=== PATIENT | male | born 2000 | race Two or more races ===

== ENCOUNTER 2019-05-12 23:12 | Emergency (ER) | payer SELFPAY ==
[2019-05-12 23:31] VITALS: BP 113/66
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
== END 2019-05-13 00:50 | disposition left against medical advice (07) ==
LOC: ER 23:12
DX: S06.9X9A Unspecified intracranial injury with loss of consciousness of unspecified duration, initial encounter (principal); Y04.2XXA Assault by strike against or bumped into by another person, initial encounter; Z53.20 Procedure and treatment not carried out because of patient's decision for unspecified reasons
CPT/HCPCS: 99281

== ENCOUNTER 2019-11-09 19:32 | Emergency (ER) | payer SELFPAY ==
[2019-11-09] MEDS ORDERED: DIPH/PERTUSS(ACELL)/TETANUS VAC/PF 0.5 ML SYR (>=10YO) IM ONE (19:53)
--- NOTE | 2019-11-09 19:55 | ER Document Report ---
ED Medical Screen (RME) - General Chief Complaint: Dog Bite Stated Complaint: DOG BITE LEFT KNEE AND ABDOMEN Time Seen by Provider: 11/09/19 19:50 Mode of Arrival: Ambulatory Information source: Patient Notes: This 19-year-old male presents emergency department with a dog bite to his left knee and to his abdomen. He reports he walked into his friend's house and the pitbull did not recognize him and bit him. Unsure of last tetanus. He reports the dog does have his rabies vaccines. I have greeted and performed a rapid initial assessment of this patient. A comprehensive ED assessment and evaluation of the patient, analysis of test results and completion of the medical decision making process will be conducted by additional ED providers. TRAVEL OUTSIDE OF THE [place] IN LAST 30 DAYS: No - Related Data Allergies/Adverse Reactions: No Known Allergies Allergy (Verified 11/09/19 19:45) Home Medications: PROZAC Past Medical History - Immunizations Immunizations up to date: Yes Hx Diphtheria, Pertussis, Tetanus Vaccination: Yes Physical Exam - Vital signs Vitals: Temp Pulse Resp BP Pulse Ox 98.0 F 80 16 121/75 98 11/09/19 19:41 11/09/19 19:41 11/09/19 19:41 11/09/19 19:41 11/09/19 19:41 Course - Vital Signs Vital signs: Temp Pulse Resp BP Pulse Ox 98.0 F 80 16 121/75 98 11/09/19 19:41 11/09/19 19:41 11/09/19 19:41 11/09/19 19:41 11/09/19 19:41
[2019-11-09 21:47] VITALS: BP 121/69
[2019-11-09] MEDS ORDERED: AMOXICILLIN TR/POT CLAVULANATE 875-125 MG TAB PO ONE (21:57)
--- NOTE | 2019-11-09 21:57 | ER Document Report ---
HPI - HPI Time Seen by Provider: 11/09/19 19:50 Pain Level: Denies Notes: Patient is a 19-year-old male no significant past medical history and unknown last tetanus who presents complaining of dog bite to his left knee and abdominal wall that occurred prior to arrival. Patient states that he went into his friend's house and is friends dog did not recognize him at first and did bite him twice. Patient states that the bite dickinson a very small. He has no other concerns or complaints. Denies drug allergies. Dog's rabies immunization is up-to-date. Denies any headache, fever, neck pain, URI, sore throat, chest pain, palpitations, syncope, cough, shortness of breath, wheeze, dyspnea, abdominal pain, nausea/vomiting/diarrhea, urinary retention, dysuria, hematuria, or rash. - ROS Systems Reviewed and Negative: Yes All other systems reviewed and negative - CONSTITUTIONAL Constitutional: DENIES: Fever, Chills - MUSCULOSKELETAL Musculoskeletal: REPORTS: Extremity pain Past Medical History - General Information source: Patient - Social History Smoking Status: Current Every Day Smoker Family History: Reviewed & Not Pertinent Patient has suicidal ideation: No Patient has homicidal ideation: No - Immunizations Immunizations up to date: Yes Hx Diphtheria, Pertussis, Tetanus Vaccination: Yes Vertical Provider Document - CONSTITUTIONAL Agree With Documented VS: Yes Notes: PHYSICAL EXAMINATION: GENERAL: Well-appearing, well-nourished and in no acute distress. HEAD: Atraumatic, normocephalic. EYES: Pupils equal round and reactive to light, extraocular movements intact, sclera anicteric, conjunctiva are normal. ENT: Nares patent and without discharge. oropharynx clear without exudates. No tonsilar hypertrophy or erythema. Moist mucous membranes. NECK: Normal range of motion, supple without lymphadenopathy LUNGS: Breath sounds clear to auscultation bilaterally and equal. No wheezes rales or rhonchi. HEART: Regular rate and rhythm without murmurs, rubs, gallops. ABDOMEN: Soft, nontender, nondistended abdomen. No guarding, no rebound. Normal bowel sounds present. No CVA tenderness bilaterally. Musculoskeletal: FROM to passive/active. Strength 5+/5. Extremities: No cyanosis, clubbing, or edema b/l. Peripheral pulses 2+. Capillary refill less than 3 seconds. NEUROLOGICAL: Cranial nerves grossly intact. Normal speech, normal gait. Normal sensory, motor exams PSYCH: Normal mood, normal affect. SKIN: Left knee/abd wall: there is are two very small punctures approx 1cm without significant gap noted. No active bleeding. No obvious foreign body. No purulence. - INFECTION CONTROL TRAVEL OUTSIDE OF THE [place] IN LAST 30 DAYS: No Course - Re-evaluation Re-evalutation: 11/09/19 21:54 Patient is an afebrile, well-hydrated, 19-year-old male who presents for superficial dog bite wounds x2. Vitals are acceptable without significant tachycardia, tachypnea, or hypoxia. PE is otherwise unremarkable. Patient is nontoxic-appearing and is tolerating p.o. without difficulty. There is no evidence of superimposed infection or foreign body at this time. Wounds were thoroughly irrigated and cleansed. Wound dressing was placed and wound instructions reviewed. No suture repair warranted. I did review rabies vaccination series with the patient who declines at this time and I am in agreement with as the animal is a domesticated pet with known up-to-date rabies vaccinations. I will send her home with a prescription for Augmentin. Recheck with your PCM in 3 to 5 days. Return to the ED with any other worsening/concerning symptoms. Patient is in agreement. - Vital Signs Vital signs: Temp Pulse Resp BP Pulse Ox 98.1 F 65 18 121/69 97 11/09/19 21:41 11/09/19 21:41 11/09/19 21:41 11/09/19 21:41 11/09/19 21:41 Discharge - Discharge Clinical Impression: Dog bite Qualifiers: Encounter type: initial encounter Qualified Code(s): W54.0XXA - Bitten by dog, initial encounter Condition: Stable Disposition: HOME, SELF-CARE Instructions: Animal Bites ([facility]) Additional Instructions: Keep the skin clean Wash with soap and water Tylenol/ibuprofen if needed Triple antibiotic ointment daily Take medication as directed Monitor for any worsening symptoms Recheck with your PCM in 3-5 days Return to the ED with any worsening symptoms and/or development of fever, headache, chest pain, palpitations, syncope, shortness of breath, trouble breathing, abdominal pain, n/v/d, abscess, purulent discharge, red streaks, worsening swelling, or other worsening symptoms that are concerning to you. Prescriptions: Amoxicillin/Potassium Clav [Augmentin 875-125 Tablet] 1 tab PO BID #20 tab Forms: Smoking Cessation Education Referrals: JESSE ARAIZA MD [ACTIVE STAFF] - Follow up as needed
== END 2019-11-09 22:07 | disposition home or self-care (01) ==
LOC: ER 19:32
DX: S81.052A Open bite, left knee, initial encounter (principal); W54.0XXA Bitten by dog, initial encounter; F17.200 Nicotine dependence, unspecified, uncomplicated
CPT/HCPCS: 99283; 90471; 90715; J3490

== ENCOUNTER 2020-03-18 23:13 | Emergency (ER) | payer SELFPAY ==
[2020-03-18 23:21] VITALS: BP 148/90
[2020-03-19] MEDS ORDERED: HYDROCODONE/ACETAMINOPHEN 5-325 MG (6 TAB/ER DISP) PO PRN (00:18)
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
== END 2020-03-19 00:55 | disposition home or self-care (01) ==
LOC: ER 23:13
DX: S62.336A Displaced fracture of neck of fifth metacarpal bone, right hand, initial encounter for closed fracture (principal); W22.8XXA Striking against or struck by other objects, initial encounter; F17.200 Nicotine dependence, unspecified, uncomplicated
CPT/HCPCS: 99283

== ENCOUNTER 2020-04-24 12:45 | Emergency (ER) | payer SELFPAY ==
[2020-04-24] MEDS ORDERED: HYDROCODONE/ACETAMINOPHEN 5-325 MG TABLET PO ONE (13:12)
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
[2020-04-24 15:10] VITALS: BP 107/52
== END 2020-04-24 15:11 | disposition home or self-care (01) ==
LOC: ER 12:45
DX: S62.91XD Unspecified fracture of right hand, subsequent encounter for fracture with routine healing (principal); M79.641 Pain in right hand; M79.89 Other specified soft tissue disorders; F17.200 Nicotine dependence, unspecified, uncomplicated; X58.XXXD Exposure to other specified factors, subsequent encounter; Y93.89 Activity, other specified
CPT/HCPCS: 99284